=== PATIENT | male | born 1965 | race Caucasian/White ===

== ENCOUNTER 2018-04-30 00:03 | Outpatient (CLI) | payer BC, SELFPAY ==
--- NOTE | 2018-04-30 08:30 | ETT_ITS ---
*[facility]* *[facility]* [address] [place] [address] Stress Electrocardiography Chase protocol Date of study: 04/30/2018 *PATIENT PRESENTATION* Height: 182.9cm (72in) Blood Pressure: Weight: 85.5kg (188lb) BSA: 2.09m^2 Ordering physician: Lan Arenas Impressions: Normal study after maximal exercise. Summary: 1. Stress ECG conclusions: The stress ECG is negative. Allen treadmill score: 13. This score predicts a low risk of cardiac events. 2. Stress: The target heart rate was achieved. The heart rate response to stress is normal. There is a normal resting blood pressure with an appropriate response to stress. The patient experienced no chest pain during stress. Exercise capacity is normal for age. Indication: R06.09. History: REASON FOR TESTING: OVER THE PASET MONTH, PT HAS BEEN EXPERINCING BUTTERFLYS IN HIS CHEST- STATED THAT IT WAS A WEIRD TREMBLING FEELING. 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 PT REPORTS THAT HE HAS HAD UNEXPECTED SHORTNESS OF BREATH WITH NORMAL ACTIVITIES. PMH: HYPERLIPIDEMIA, ANXIETY. FAMILY HX: FATHER- AFIB, TIA, VASCULAR STENTING AND REVASC. SURGERY TO LOWER LEG. SMOKING: SMOKED 1PPD X 13 YEARS, QUIT 2007. EXCERCISE: IRREGULAR EXCERCISE, WALKING AND ROWING MACHINE PERIODICALLY. Risk factors: Family history of coronary artery disease. Dyslipidemia. Cholesterol: 207mg/dl. HDL: 40mg/dl. LDL: 84mg/dl. Triglycerides: 90mg/dl. ALLERGIES: NKDA MEDICATIONS:SIMVASTATIN 20 MG DAILY, ASPIRIN 81 MG OCASSIONALLY. Protocol: Chase protocol. Baseline ECG: NO PREVIOUS EKG AVAILABLE TODAY'S EKG- SINUS RHYTHM, ST ELEVATION-NORMAL EARLY REPOL PATTERN. Stress protocol: + +---+ +---+ !Stage !HR !BP (mmHg) !Sat! + +---+ +---+ !Baseline supine !62 !140/92 (108) !---! + +---+ +---+ !Baseline standing !61 !132/86 (101) !99%! + +---+ +---+ !Stage I; 1.7mph, 10degrees; 3 min !97 !161/101 (121)!98%! + +---+ +---+ !Stage II; 2.5mph, 12degrees; 3 min !111!180/106 (131)!97%! + +---+ +---+ !Stage III; 3.4mph, 14degrees; 3 min!129!196/102 (133)!98%! + +---+ +---+ !Stage IV; 4.2mph, 16degrees; 3 min !145!200/110 (140)!98%! + +---+ +---+ !Recovery; 1 min !140!192/98 (129) !96%! + +---+ +---+ !Recovery; 3 min !92 !208/90 (129) !---! + +---+ +---+ !Recovery; 6 min !83 !134/94 (107) !---! + +---+ +---+ * Stress results: The target heart rate was achieved. The heart rate response to stress is normal. There is a normal resting blood pressure with an appropriate response to stress. The rate-pressure product for the peak heart rate and blood pressure was 70246uv Hg/min. The patient experienced no chest pain during stress. Exercise capacity is normal for age. Stress ECG: EXCERCISE TESTING ENDED IN 13 MINS, 18 SECS DUE TO FATIGUE. MAX HR 176, 104% OF TARGET. HYPERTENSIVE BLOOD PRESSURE RESPONSE. METS: 14.37 ANGINA: NO REPORTED CHEST PAIN OR PRESSURE, NO CHEST FLUTTERING. ISCHEMIA: NO ISCHEMIC CHANGES NOTED.. FUNCTIONAL CAPACITY: ABOVE AVERAGE CAPACITY. The stress ECG is negative. Allen treadmill score: 13. This score predicts a low risk of cardiac events. Study data: Madi Pierce MD supervised and was readily available during the procedure. This study was interpreted by [facility]. Study status: Routine. Consent: The risks, benefits, and alternatives to the procedure were explained to the patient and informed consent was obtained. Procedure: Initial setup. A baseline ECG was recorded. Surface ECG leads and manual cuff blood pressure measurements were monitored. Heart sounds: Normal. Lung sounds: Normal. Treadmill exercise testing was performed using the Chase protocol. Study completion: The patient tolerated the procedure well and was discharged from the lab. Discharge: The patient left the laboratory in stable condition. Birthdate: Patient birthdate: 1965. Sex: Gender: male. Study date: Study date: 04/30/2018. Study time: 08:30 AM. Electronically signed by Madi Pierce MD 04/30/2018 09:46
== END 2018-04-30 00:23 ==
PROVIDERS: PCP Nurse Practitioner Family; Visit Provider Family Medicine
DX: R06.02 Shortness of breath (principal); R00.2 Palpitations; E78.5 Hyperlipidemia, unspecified; Z87.891 Personal history of nicotine dependence; R06.09 Other forms of dyspnea
CPT/HCPCS: 93017

== ENCOUNTER 2018-05-09 01:28 | Outpatient (CLI) | payer BC, SELFPAY ==
--- NOTE | 2018-05-09 08:50 | DI.US_ITS ---
SYMPTOM/DIAGNOSIS: HEADACHE ASSOCIATED WITH SEXUAL ACTIVITY, G44.82, SMOKER, DIZZINESS CAROTID ULTRASOUND: Mild intimal thickening is noted bilaterally. Also mild calcific plaque is identified in both carotid bulbs. There is a less than 50% stenosis bilaterally. Note is also made of bilateral antegrade flow in the vertebrals. SUMMARY: There is no evidence of significant carotid stenosis. Please see the carotid ultrasound worksheet for the complete results of this examination.
== END 2018-05-09 01:48 ==
PROVIDERS: PCP Nurse Practitioner Family; Visit Provider Nurse Practitioner Family
DX: R51 Headache (principal); G44.82 Headache associated with sexual activity; R42 Dizziness and giddiness
CPT/HCPCS: 93880

== ENCOUNTER 2019-01-11 12:18 | Outpatient (REF) | payer BC, SELFPAY ==
[2019-01-11 16:21] LABS: ALT 57 U/L (12-78); AST 43 U/L (15-37); Alkaline Phosphatase 66 U/L (46-116); Anion Gap 11.3 mmol/L (3-11); BUN 13 mg/dL (7-18); Bilirubin, Total 0.6 mg/dL (0.2-1.0); CO2 26.7 mmol/L (21.0-32.0); CREATININE 0.85 mg/dL (0.70-1.30); Calcium 8.5 mg/dL (8.5-10.1); Calculated LDL 121 mg/dL; Chloride 100 mmol/L (98-107); Cholesterol 194 mg/dL (50-200); Glucose 95 mg/dL (70-100); HDL Cholesterol 52 mg/dL (40-60); Potassium 4.1 mmol/L (3.5-5.1); Sodium 138 mmol/L (136-145); Total Protein 6.7 g/dL (6.4-8.2); Triglyceride 109 mg/dL (30-150)
== END 2019-01-11 12:38 ==
LOC: NCHCN 12:18
PROVIDERS: PCP Nurse Practitioner Family; Visit Provider Nurse Practitioner Family
DX: Z00.00 Encounter for general adult medical examination without abnormal findings (principal); E78.5 Hyperlipidemia, unspecified
CPT/HCPCS: 80053; 80061; 83721

== ENCOUNTER 2019-12-01 15:15 | Emergency (ER) | payer BC, SELFPAY ==
[2019-12-01 15:20] VITALS: BP 175/109; PULSE 70; RESP 14; TEMP 36.7; O2SAT 98
--- NOTE | 2019-12-01 15:40 | ED.GENADUL_ITS ---
Discharge Plan Disposition Patient Disposition: HOME Condition: Stable Discharge Details Chief Complaint: GenMedical Clinical Impression: Cellulitis Primary Care Provider: Cory Melgar ED Provider: René Veloz Home Meds and New Rx's Prescriptions: New cephalexin 500 mg capsule 500 mg PO TID 5 Days Qty: 15 RF: 0 Continued simvastatin 20 MG tablet 40 mg PO DAILY RF: 0 Discharge Instructions Instructions: Cellulitis (ED) Medical Decision Making 54-year-old male was working in a wooded area with pressure-treated wood and believes he may have got a small splinter or thorn below the skin of his left knee and now has an area of redness which he is concerned is infected. No fever. His exam reveals an area of mildly inflamed 5 to 6 mm raised skin. The area was opened with a bevel needle with serous fluid expressed. No obvious foreign body was removed. I will place the patient on Keflex. He will use warm soaks at home. He knows to return should he develop evidence of purulence or systemic fever or chills. HPI General Mode of arrival: ambulatory . Date/Time Provider Initiated Documentation: 12/01/19 15:16 . Limitations to Documentation: no limitations . Information obtained by: patient . History of Present Illness 54 year old M presents to the emergency department with the chief complaint of Left knee question infected splinter, described as mild, Quality is described as dull and constant, and is localized to the left and lower extremity. and it has been constant. No relieving factors improve symptom(s), No exacerbating factors reported . Patient notes other (Mild drainage at home, no fever). Patient did receive the following treatments prior to arrival, none Related Data Home Medications Medication Instructions Recorded Confirmed simvastatin 40 mg PO DAILY tab-cap 05/20/14 12/01/19 cephalexin 500 mg PO TID 5 Days #15 cap 12/01/19 Previous Rx's Medication Instructions Recorded cephalexin 500 mg PO TID 5 Days #15 cap 12/01/19 Allergies Allergy/AdvReac Type Severity Reaction Status Date / Time No Known Allergies Allergy Unverified 02/13/15 10:08 General Stated Complaint: GenMedical JONATHAN: 5 Review of Systems Narrative: No fever, chills, tetanus is up-to-date. [facility] Social History Smoking/Tobacco Use Status: Never Drug use: Never Do you feel safe in your relationship?: Yes Exam Narrative Exam Narrative: GEN: awake, alert, oriented 3. Pleasant, well groomed, interactive. HEAD: Normocephalic, atraumatic EYES: PERRL, EOMI EXT: Full ROM, no edema, no rash. The left leg overlying the tibial plateau laterally shows a abrasion with area of slight fluctuance measuring approximately 5 to 6 mm. Serous fluid was expressed. The knee is fully mobile. Neuro: Grossly normal neurologic exam, conversant, interactive. Psych: Speech fluent, thoughts congruent, affect normal Course Vital Signs Vital signs: Vital Signs Temperature 36.7 C 12/01/19 15:20 Pulse 70 12/01/19 15:20 Respiratory Rate 14 12/01/19 15:20 Blood Pressure 175/109 H 12/01/19 15:20 Pulse Oximetry 98 12/01/19 15:20 Temperature 36.7 C 12/01/19 15:20 Temperature Source Skin 12/01/19 15:20 Pulse 70 12/01/19 15:20 Respiratory Rate 14 12/01/19 15:20 Blood Pressure 175/109 H 12/01/19 15:20 Blood Pressure Position Sitting 12/01/19 15:20 Pulse Oximetry 98 12/01/19 15:20 Oxygen Delivery Method Room Air 12/01/19 15:20 Oxygen Flow Rate 0 12/01/19 15:20 Pain Level 4 12/01/19 15:20
[2019-12-01] MEDS: Cephalexin 500 MG CAP, 4 CAPS/BTL PO (15:53)
== END 2019-12-01 15:51 | disposition home or self-care (01) ==
PROVIDERS: Emergency Provider Emergency Medicine; PCP Nurse Practitioner Family
DX: S80.212A Abrasion, left knee, initial encounter (principal); L03.116 Cellulitis of left lower limb; X58.XXXA Exposure to other specified factors, initial encounter
CPT/HCPCS: 10160

== ENCOUNTER 2020-01-06 14:54 | Emergency (ER) | payer OTHER, SELFPAY ==
[2020-01-06 14:56] VITALS: BP 182/121; PULSE 86; RESP 16; TEMP 36.7; O2SAT 97
[2020-01-06 16:00] VITALS: BP 169/99
[2020-01-06 16:05] VITALS: BP 158/99; PULSE 78; RESP 20; TEMP 36.5; O2SAT 96
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
--- NOTE | 2020-03-23 13:13 | ED.GENADUL_ITS ---
Discharge Plan Disposition Patient Disposition: HOME Condition: Stable Discharge Details Clinical Impression: Burn Primary Care Provider: Cory Melgar ED Provider: Mariaelena Mata Home Meds and New Rx's Prescriptions: No Action simvastatin 20 MG tablet 40 mg PO DAILY RF: 0 Discharge Instructions Instructions: Superficial Burn (ED), Second Degree Burn (ED) Additional Instructions: Wash area gently with soap and water once or twice daily. Pat dry completely. Apply antibiotic ointment for any burn tissue as discussed Apply dressing to the area. Use Aleve or Tylenol for discomfort if needed as discussed Please have follow-up appoint with your primary care doctor for wound recheck as well as for recheck of your blood pressure which is noted to be elevated today. Please check your blood pressure in the morning with your at home blood pressure cuff and record your blood pressures to discuss with your PCP Your tetanus was last updated 02/10/2015. Return for any concerns, increasing pain, signs of infection or alarming symptoms sooner if needed Discharge Data Discharge Date/Time-TO BE ENTERED AT DEPARTURE: 01/06/20 16:16 HPI General Date/Time Provider Initiated Documentation: 01/06/20 15:04 . HPI Narrative: Please see H&P for documentation regarding this pt visit to the ER. This was signed 03/23/2020. Related Data Home Medications Medication Instructions Recorded Confirmed simvastatin 40 mg PO DAILY tab-cap 05/20/14 01/06/20 Allergies Allergy/AdvReac Type Severity Reaction Status Date / Time No Known Allergies Allergy Unverified 01/06/20 15:00 General Stated Complaint: Burn JONATHAN: 3 PFSH Social History Smoking/Tobacco Use Status: Never Alcohol Intake: never Drug use: Never Substance use type: does not use Do you feel safe at home: Yes Do you feel safe in your relationship?: Yes Course Vital Signs Vital signs: Vital Signs Temperature 36.7 C 01/06/20 14:56 Pulse 86 01/06/20 14:56 Respiratory Rate 16 01/06/20 14:56 Blood Pressure 182/121 H 01/06/20 14:56 Pulse Oximetry 97 01/06/20 14:56 Temperature 36.5 C 01/06/20 16:05 Temperature Source Skin 01/06/20 14:56 Pulse 78 01/06/20 16:05 Respiratory Rate 20 01/06/20 16:05 Respiratory Effort Non-Labored 01/06/20 15:03 Blood Pressure 158/99 H 01/06/20 16:05 Blood Pressure Position Sitting 01/06/20 14:56 Pulse Oximetry 96 01/06/20 16:05 Oxygen Delivery Method Room Air 01/06/20 14:56 Oxygen Flow Rate 0 01/06/20 14:56 Pain Level 5 01/06/20 14:56
== END 2020-01-06 16:16 | disposition home or self-care (01) ==
PROVIDERS: Emergency Provider Physician Assistant; PCP Nurse Practitioner Family
DX: T23.211A Burn of second degree of right thumb (nail), initial encounter (principal); X13.1XXA Other contact with steam and other hot vapors, initial encounter
CPT/HCPCS: 16020; 99223

== ENCOUNTER 2020-01-30 01:58 | Emergency (ER) | payer SELFPAY | END 2020-01-30 02:01 | LOC: ER 02:01 | PROVIDERS: PCP Nurse Practitioner Family | DX: Z53.21 Procedure and treatment not carried out due to patient leaving prior to being seen by health care provider (principal) ==

== ENCOUNTER 2020-07-08 02:45 | Outpatient (CLI) | payer BC, SELFPAY ==
[2020-07-08 07:31] LABS: HCT 47.2 % (40.0-50.0); HGB 15.9 g/dL (13.5-17.5); MCH 31.4 pg (27.0-33.0); MCHC 33.7 % (32.0-36.0); MCV 93.1 fL (80-95); MPV 9.8 fL (8.0-11.0); Platelet Count 156 10^3/uL (130-400); RBC 5.07 10^6/uL (4.36-5.78); RDW 12.4 % (11.8-14.1); RDW-SD 42.4 fL; WBC 4.73 10^3/uL (4.4-10.8)
== END 2020-07-08 03:05 ==
PROVIDERS: PCP Nurse Practitioner Family; Visit Provider Physician Assistant
DX: Z00.00 Encounter for general adult medical examination without abnormal findings (principal); E78.5 Hyperlipidemia, unspecified
CPT/HCPCS: 36415; 85027

== ENCOUNTER 2020-07-13 18:29 | Outpatient (REF) | payer BC, SELFPAY ==
[2020-07-13 19:01] LABS: Anion Gap 6.3 mmol/L (3-11); BUN 14 mg/dL (7-18); CO2 27.7 mmol/L (21.0-32.0); CREATININE 1.01 mg/dL (0.70-1.30); Calculated LDL 148 mg/dL (<100); Chloride 100 mmol/L (98-107); Cholesterol 234 mg/dL (<200); Glucose 92 mg/dL (74-106); HDL Cholesterol 54 mg/dL (40-60); Potassium 4.1 mmol/L (3.5-5.1); Sodium 134 mmol/L (136-145); Triglyceride 164 mg/dL (<150)
[2020-07-14 17:52] LABS: PSA, Screening 0.9 ng/mL (0.0-3.5)
== END 2020-07-13 18:49 ==
LOC: NCHCN 18:29
PROVIDERS: PCP Nurse Practitioner Family; Visit Provider Physician Assistant
DX: Z12.5 Encounter for screening for malignant neoplasm of prostate (principal); I10 Essential (primary) hypertension; E78.5 Hyperlipidemia, unspecified; M67.40 Ganglion, unspecified site; L30.9 Dermatitis, unspecified
CPT/HCPCS: 80048; 80061; 84153

== ENCOUNTER 2021-07-12 13:10 | Outpatient (REF) | payer BC, SELFPAY ==
[2021-07-12 15:37] LABS: ALT 56 U/L (16-63); AST 39 U/L (15-37); Albumin 4.2 g/dL (3.4-5.0); Alkaline Phosphatase 60 U/L (46-116); Anion Gap 8.2 mmol/L (3-11); BUN 14 mg/dL (7-18); Bilirubin, Total 0.6 mg/dL (0.2-1.0); CO2 29.8 mmol/L (21.0-32.0); Calcium 8.8 mg/dL (8.5-10.1); Calculated LDL 133 mg/dL (<100); Chloride 99 mmol/L (98-107); Cholesterol 206 mg/dL (<200); Glucose 99 mg/dL (74-106); HDL Cholesterol 55 mg/dL (40-60); Potassium 4.2 mmol/L (3.5-5.1); Sodium 137 mmol/L (136-145); Total Protein 6.8 g/dL (6.4-8.2); Triglyceride 94 mg/dL (<150)
[2021-07-12 21:53] LABS: PSA, Screening 1.6 ng/mL (0.0-3.5)
== END 2021-07-12 13:11 | disposition home or self-care (01) ==
LOC: NCHCN 13:10
PROVIDERS: PCP Nurse Practitioner Family; Visit Provider Physician Assistant
DX: I10 Essential (primary) hypertension (principal); E78.5 Hyperlipidemia, unspecified; Z12.5 Encounter for screening for malignant neoplasm of prostate
CPT/HCPCS: 80053; 80061; 84153

== ENCOUNTER 2022-07-15 15:02 | Outpatient (REF) | payer BC, SELFPAY ==
[2022-07-15 15:59] LABS: ALT 42 U/L (16-63); AST 30 U/L (15-37); Albumin 4.4 g/dL (3.4-5.0); Alkaline Phosphatase 65 U/L (46-116); Anion Gap 7.2 mmol/L (3-11); BUN 18 mg/dL (7-18); Bilirubin, Total 0.9 mg/dL (0.2-1.0); CO2 28.8 mmol/L (21.0-32.0); CREATININE 0.9 mg/dL (0.70-1.30); Calcium 9.3 mg/dL (8.5-10.1); Calculated LDL 131 mg/dL (<100); Chloride 99 mmol/L (98-107); Cholesterol 202 mg/dL (<200); Estimated GFR 100.86 (mL/min/1.73m2); Glucose 106 mg/dL (74-106); HDL Cholesterol 60 mg/dL (40-60); Potassium 4.3 mmol/L (3.5-5.1); Sodium 135 mmol/L (136-145); Total Protein 7.5 g/dL (6.4-8.2); Triglyceride 56 mg/dL (<150)
[2022-07-15 23:09] LABS: PSA, Screening 1.8 ng/mL (<=3.5)
== END 2022-07-15 15:03 | disposition home or self-care (01) ==
LOC: NCHCN 15:02
PROVIDERS: Visit Provider Physician Assistant
DX: I10 Essential (primary) hypertension (principal); E78.5 Hyperlipidemia, unspecified; Z12.5 Encounter for screening for malignant neoplasm of prostate
CPT/HCPCS: 80053; 80061; 84153

== ENCOUNTER 2022-09-28 14:54 | Outpatient (CLI) | payer BC, SELFPAY ==
--- NOTE | 2022-09-28 | DI.RAD_ITS ---
Exam(s) XR SHOULDER RT COMPLETE 2+V EXAM: XR SHOULDER RT COMPLETE 2+V CLINICAL HISTORY: RT SHOULDER JT PAIN, M25.511, CHRONIC PAIN WITH IMPINGEMENT. TECHNIQUE: 2D digital imaging was performed of the right shoulder. Five images were obtained. AP, Grashey, Y-view and axillary views were obtained. COMPARISON: No exams were available for comparison FINDINGS: BONES: No acute fracture is present. No bony destructive lesion is seen. JOINTS: No dislocation present. Mild degenerative changes are seen at the acromioclavicular joint faith racterized by bony hypertrophy. SOFT TISSUE: Calcifications are seen in the soft tissues adjacent to greater tuberosity consistent wi th calcific tendinitis. IMPRESSION: Mild degenerative changes of the right shoulder with calcific tendinitis. DATA REPOSITORY: RADIATION DOSE DELIVERED:
== END 2022-09-28 15:14 ==
LOC: DI 14:55
PROVIDERS: PCP Physician Assistant; Visit Provider Physician Assistant
DX: M25.511 Pain in right shoulder (principal); M75.41 Impingement syndrome of right shoulder; M75.31 Calcific tendinitis of right shoulder; M19.011 Primary osteoarthritis, right shoulder
CPT/HCPCS: 73030

== ENCOUNTER 2023-08-11 15:05 | Outpatient (REF) | payer BC, SELFPAY ==
[2023-08-11 16:15] LABS: ALT 32 U/L (16-63); AST 17 U/L (15-37); Albumin 3.7 g/dL (3.4-5.0); Alkaline Phosphatase 63 U/L (46-116); BUN 12 mg/dL (7-18); Bilirubin, Total 0.9 mg/dL (0.2-1.0); CREATININE 0.9 mg/dL (0.70-1.30); Calcium 9.3 mg/dL (8.5-10.1); Calculated LDL 86 mg/dL (<100); Chloride 102 mmol/L (98-107); Cholesterol 148 mg/dL (<200); Estimated GFR 100.24 (mL/min/1.73m2); Glucose 101 mg/dL (74-106); HDL Cholesterol 56 mg/dL (40-60); Potassium 4.3 mmol/L (3.5-5.1); Sodium 137 mmol/L (136-145); Total Protein 6.7 g/dL (6.4-8.2); Triglyceride 31 mg/dL (<150)
[2023-08-11 22:22] LABS: PSA, Screening 0.8 ng/mL (<=3.5)
== END 2023-08-11 15:06 | disposition home or self-care (01) ==
LOC: NCHCN 15:05
PROVIDERS: PCP Physician Assistant; Visit Provider Physician Assistant
DX: I10 Essential (primary) hypertension (principal); Z12.5 Encounter for screening for malignant neoplasm of prostate
CPT/HCPCS: 80053; 80061; 84153

== ENCOUNTER 2024-03-22 19:50 | Outpatient (REF) | payer BC, SELFPAY ==
[2024-03-22 14:54] LABS: Abs Immature Grans 0.01 10^3/uL (0.0-0.06); Absolute Basophil Count 0.06 10^3/uL (0.0-0.2); Absolute Eosinophil Count 0.62 10^3/uL (0.0-0.7); Absolute Monocyte Count 0.62 10^3/uL (0.1-0.8); Absolute Neutrophil Count 3.48 10^3/uL (1.2-6.7); Basophils % 1.1 %; Eosinophils % 10.9 %; HCT 46.3 % (40.0-50.0); HGB 15.3 g/dL (13.5-17.5); Immature Grans % 0.2 %; Lymphocytes % 15.8 %; MCH 31.1 pg (27.0-33.0); MCV 94 fL (80-95); MPV 10.4 fL (8.0-11.0); Monocytes % 10.9 %; Neutrophils % 61.1 %; Platelet Count 177 10^3/uL (130-400); RBC 4.92 10^6/uL (4.36-5.78); RDW 12.7 % (11.8-14.1); RDW-SD 43.9 fL; WBC 5.69 10^3/uL (4.4-10.8)
[2024-03-22 15:05] LABS: ALT 59 U/L (16-63); AST 30 U/L (15-37); Albumin 4.1 g/dL (3.4-5.0); Alkaline Phosphatase 67 U/L (46-116); Anion Gap 4.5 mmol/L (3-11); BUN 17 mg/dL (7-18); CO2 30.5 mmol/L (21.0-32.0); CREATININE 0.9 mg/dL (0.70-1.30); Calcium 9.3 mg/dL (8.5-10.1); Chloride 102 mmol/L (98-107); Estimated GFR 99.62 (mL/min/1.73m2); Glucose 101 mg/dL (74-106); Potassium 4.3 mmol/L (3.5-5.1); Sodium 137 mmol/L (136-145); Total Protein 7.1 g/dL (6.4-8.2)
[2024-03-22 15:06] LABS: Lipase 315 U/L (16-77)
== END 2024-03-22 19:51 | disposition home or self-care (01) ==
LOC: LBN 19:50
PROVIDERS: PCP Physician Assistant; Visit Provider Physician Assistant Medical
DX: R10.9 Unspecified abdominal pain (principal)
CPT/HCPCS: 80053; 83690; 85025

== ENCOUNTER 2024-04-16 10:38 | Emergency (ER) | payer BC, SELFPAY ==
--- NOTE | 2024-04-16 11:00 | RT.EKG_ITS ---
APPROVED REPORT Exam: Resting ECG Reason for Exam: upper abdominal pain Patient Location: E HR:109 bpm ECG Measurements Heart Rate 109 AXIS [place] 121 P 71 QRSd 84 QRS 46 QT 324 T 55 QTc 436 Conclusion Sinus tachycardia, rate 109 No interval abnormalities No STEMI
[2024-04-16 11:01] VITALS: BP 119/71; PULSE 113; RESP 14; TEMP 37; O2SAT 96
--- NOTE | 2024-04-16 11:27 | DI.CT_ITS ---
Exam(s) CT ABDOMEN PELVIS W EXAM: CT ABDOMEN PELVIS W CLINICAL HISTORY: abd pain, epigastric. TECHNIQUE: Imaging Protocol: Axial computed tomography images with coronal and sagittal reformatted images were created and reviewed CONTRAST MATERIAL: Intravenous: Omnipaque 350 Contrast volume:98 ml Oral: no COMPARISON: CT CT ABDOMEN PELVIS W from 03/25/2024 US US ABDOMEN LIMITED from 03/29/2024 FINDINGS: ABDOMEN and PELVIS: Lung Bases: No acute findings. Liver: Normal density. No suspicious mass. Gallbladder and biliary tract: No radiodense calculus. Stable mild dilatation of the common bile nick t which tapers into the head of the pancreas. The pancreas appears normal. No intrahepatic biliary di latation. Pancreas: Normal density. No abnormal calcifications or inflammatory process. No evidence of mass. Spleen: Normal. Kidneys: Normal size, contour and axis. No radiodense stones. No obstructive uropathy. No suspicious masses seen. Adrenal glands: No masses seen. Vasculature: Abdominal aorta non-dilated. Soft tissues: Unremarkable. Bladder: Nearly empty and not well evaluated. Apparent diffuse wall thickening. No calculi.No focal mass. Bowel: Abnormal wall thickening and enhancement involving distal ileum. The colon is nearly empty. The stomach, proximal and mid small bowel appear normal. No obstruction. Appendix normal. Peritoneal cavity: Small amount of fluid in pelvis. No focal collection. No mesenteric inflammatory response. Bones: Unremarkable for age. Reproductive organs: Unremarkable. Lymph nodes: No pathologically enlarged lymph nodes. IMPRESSION:: A normal wall thickening and inflammation around the distal ileum consistent with infec tious or inflammatory enteritis. Small amount of fluid is noted in the pelvis. No findings to suggest obstruction. Markedly thickened urinary bladder which is not well distended. Clinical correlation recommended. Findings called to Dr. Amato of the emergency department. RADIATION DOSE DELIVERED: Total DLP DATA REPOSITORY: All CT scans at this facility are submitted to the National Radiology Data Registry (NRDR) Dose Index Registry (DIR) with the [employer] (A[employer]). RADIATION OPTIMIZATION: All CT scans at this facility use at least one of these dose optimization te chniques: automated exposure control; mA and/or kV adjustment per patient size (includes targeted exa ms where dose is matched to clinical indication); or iterative reconstruction.
--- NOTE | 2024-04-16 12:06 | ED.GENADUL_ITS ---
Discharge Plan Disposition Patient Disposition: Home Condition: Stable Discharge Details Clinical Impression: Abdominal pain, Ileitis, terminal, Diarrhea Primary Care Provider: Abebe Bell ED Provider: Sonia Bowling Home Meds and New Rx's Prescriptions: No Action simvastatin 20 MG tablet 40 mg PO DAILY atorvastatin 40 mg tablet 40 mg PO DAILY Discharge Instructions Instructions: Abdominal Pain, Adult ED Additional Instructions: You were seen in the emergency department today for evaluation of abdominal pain and diarrhea. In our department your full physical examination performed and had laboratory studies that were reassuring. Your CT scan showed some irritation in your bowel, which can be due to infection or inflammatory bowel disease. I recommend that you keep a food diary and correlate foods that you take in with your symptoms, maintain good hydration and nutrition, and follow-up with your primary care provider in the next few days to discuss any ongoing symptoms and any testing that needs to be performed after today's visit. You can always return to the emergency department, especially if you develop fever, chills, chest pain, change or worsening of your abdominal pain, or any of the symptoms cause you concern. Thank for allowing us to be part of your care. HPI General Mode of arrival: ambulatory . Date/Time Provider Initiated Documentation: 04/16/24 11:14 . Limitations to Documentation: no limitations . Information obtained by: patient, family and old records reviewed . HPI Narrative: HPI: This is a 59-year-old male patient with a past medical history significant for hypercholesterolemia, alcohol use, who is presenting for evaluation of epigastric and right upper quadrant abdominal pain. The patient has noticed this pain for the last 3 weeks, seems to come and go in severity and does not seem to be related to postprandial timing. He has been working this complaint up in the outpatient environment, had a right upper quadrant ultrasound that shows no evidence of cholecystitis or cholelithiasis but did show a borderline dilated common bile duct to 8 to 10 mm. He had elevated pancreatic enzymes per his report and had a CT scan that did not show any abnormalities in the abdomen and pelvis. The patient reports he was prompted to seek care today because last night he had worsening of his pain, which remains located in the right upper quadrant and epigastric region. It was associated with several episodes of nonbloody diarrhea and 1 episode of dry heaving. He has not had fevers or chills, has not tried to eat anything today. No personal history of abdominal surgery in the past. The patient reports that he drinks approximately 6-8 beers per day, has no known history of gallstones and has never experienced pancreatitis in the past. Exam: Gen: Awake and alert, in no apparent distress HEENT: Non-icteric sclera Neck: Supple Lungs: No apparent respiratory distress, normal respiratory effort. CV: Appears well perfused, strong distal pulses Abdomen: Non-distended, soft, tenderness to palpation in the epigastric region and right upper quadrant without rigidity, rebound, or guarding. No Nieto sign appreciated MSK: Moves 4 extremities without apparent limitation in ROM Skin: Visualized skin without rashes, cyanosis. Neuro: Normal Gait, no obvious focal deficits or facial asymmetry. Speaks in full, clear sentences. Psych: Appropriate for situation. MDM: This is a 59-year-old male patient presenting for evaluation of abdominal p ain and diarrhea. Differential includes but is not limited to gastroenteritis, gastritis/PUD, pancreatitis, cholecystitis, cholelithiasis, choledocholithiasis. Considered hepatitis, appendicitis, diverticulitis. The patient's abdominal examination and history is less concerning for aortic disease or mesenteric ischemia. No urinary tract symptoms to increase my concern for UTI, nephrolithiasis. The brief duration of diarrhea and vomiting makes me less concerned for severe metabolic and electrolyte derangement, kidney injury. At this time the patient is not desiring of any medications for management of his symptoms. Will obtain laboratory studies to include CBC, CMP, lipase, lactate, and troponin. Given the patient's recent imaging abnormalities on CT and ultrasound, as well as the change in his symptoms, it is reasonable to repeat CT imaging of the abdomen and pelvis at this time. ED Course: I independently interpreted the laboratory studies, which show no significant leukocytosis, anemia, or thrombocytopenia. The chemistry panel is without evidence of electrolyte abnormality, kidney dysfunction, or liver injury. Lactate and lipase are low, troponin undetectable, and in the setting of a nonischemic EKG I do not see indication for delta troponins. UA noninfectious. I dependently interpreted the patient's CT imaging, and discussed the findings with the radiologist. The patient has evidence of terminal ileitis, and in the absence of a history of inflammatory bowel disease as well as no evidence for vascular derangement on CT scan, and concern for infectious pathology. The patient does not have any risk factors such as recent antibiotic use, exposure to unclean water sources, or international travel to put him at risk for diarrheal illnesses that would require emergent treatment. Additionally, the patient has no evidence of pancreatitis, gallbladder disease, though his bile duct is slightly dilated for his age. These findings were shared with the patient, we discussed keeping a food diary and using bland foods for initial management of his diarrheal illness. He will follow-up with his primary care provider to discuss next Epson management. At this time, the patient has had a full medical evaluation and is safe for discharge to home. They are hemodynamically stable, ambulatory, and tolerating PO. They are understanding of the follow-up plan and return precautions. They left our facility without incident. Sonia Bowling MD Related Data Home Medications ?Medication ?Instructions ?Recorded ?Confirmed simvastatin 20 mg tablet 40 mg PO DAILY 05/20/14 04/16/24 atorvastatin 40 mg tablet 40 mg PO DAILY 04/16/24 04/16/24 Allergies Allergy/AdvReac Type Severity Reaction Status Date / Time No Known Allergies Allergy Verified 04/16/24 11:03 General Stated Complaint: Abd Prob JONATHAN: 3 Course Vital Signs Vital signs: Vital Signs Temperature 37.0 C 04/16/24 11:01 Pulse 113 H 04/16/24 11:01 Respiratory Rate 14 04/16/24 11:01 Blood Pressure 119/71 04/16/24 11:01 Pulse Oximetry 96 04/16/24 11:01 Temperature 37.0 C 04/16/24 11:01 Temperature Source Oral 04/16/24 11:01 Pulse 113 H 04/16/24 11:01 Respiratory Rate 14 04/16/24 11:01 Blood Pressure 119/71 04/16/24 11:01 Blood Pressure Position Sitting 04/16/24 11:01 Pulse Oximetry 96 04/16/24 11:01 Oxygen Delivery Method Room Air 04/16/24 11:01 Oxygen Flow Rate 0 04/16/24 11:01 Pain Level 6 04/16/24 11:01 Medical Decision Making Quality:SDOH Health Related Social Needs: No Data to Display PFSH All Active Problems (Updated 04/16/24 @ 15:47 by Sonia Bowling MD) Diarrhea (Acute) Ileitis, terminal (Acute) Abdominal pain (Acute) Burn (Acute) Social History Smoking/Tobacco Use Status: Never Smoking risk assessment performed?: Yes Alcohol Intake: never Drug use: Never Substance use type: does not use Do you feel safe at home: Yes Do you feel safe in your relationship?: Yes
[2024-04-16 12:27] LABS: Lactate 0.7 mmol/L (0.6-1.4)
[2024-04-16 12:28] LABS: Abs Immature Grans 0.01 10^3/uL (0.0-0.06); Absolute Basophil Count 0.02 10^3/uL (0.0-0.2); Absolute Eosinophil Count 0.11 10^3/uL (0.0-0.7); Absolute Lymphocyte Count 0.26 10^3/uL (1.2-3.4); Absolute Monocyte Count 0.62 10^3/uL (0.1-0.8); Absolute Neutrophil Count 4.67 10^3/uL (1.2-6.7); Basophils % 0.4 %; Eosinophils % 1.9 %; HCT 48.6 % (40.0-50.0); HGB 16.5 g/dL (13.5-17.5); Immature Grans % 0.2 %; Lymphocytes % 4.6 %; MCH 31.7 pg (27.0-33.0); MCV 93 fL (80-95); MPV 9.7 fL (8.0-11.0); Monocytes % 10.9 %; Platelet Count 142 10^3/uL (130-400); RBC 5.21 10^6/uL (4.36-5.78); RDW 12.9 % (11.8-14.1); RDW-SD 44.2 fL; WBC 5.69 10^3/uL (4.4-10.8)
[2024-04-16 12:55] LABS: ALT 47 U/L (16-63); AST 22 U/L (15-37); Albumin 3.8 g/dL (3.4-5.0); Alkaline Phosphatase 65 U/L (46-116); Anion Gap 5.6 mmol/L (3-11); BUN 18 mg/dL (7-18); CO2 29.4 mmol/L (21.0-32.0); CREATININE 0.9 mg/dL (0.70-1.30); Calcium 9.3 mg/dL (8.5-10.1); Chloride 106 mmol/L (98-107); Estimated GFR 99.62 (mL/min/1.73m2); Glucose 118 mg/dL (74-106); Lipase 52 U/L (16-77); Potassium 4.6 mmol/L (3.5-5.1); Sodium 141 mmol/L (136-145)
[2024-04-16 12:58] LABS: Troponin I < 4 ng/L (<or=76)
[2024-04-16 13:59] LABS: Bilirubin Negative (Negative); Blood Negative (Negative); Clarity Clear (Clear); Glucose Negative (Negative); Ketones Trace mg/dL (Negative); Leukocyte Esterase Negative (Negative); Nitrite Negative (Negative); Urobilinogen 0.2 mg/dL (Up to 0.2)
[2024-04-16] MEDS: Omnipaque 350 MG/ML 100 ML BTL IJ (15:05)
[2024-04-16] MEDS: Normal Saline - Diluent 50 ML VIAL IJ (15:06)
[2024-04-16 16:11] VITALS: BP 127/86; PULSE 91; RESP 18; TEMP 36.3; O2SAT 96
== END 2024-04-16 16:15 | disposition home or self-care (01) ==
PROVIDERS: Emergency Provider Emergency Medicine; PCP Physician Assistant
DX: R10.13 Epigastric pain (principal); R19.7 Diarrhea, unspecified; R00.0 Tachycardia, unspecified; E78.00 Pure hypercholesterolemia, unspecified; K50.00 Crohn's disease of small intestine without complications
CPT/HCPCS: 36415; 80053; 83690; 93005; 99285; 74177; 81003; 83605; 83735; 84484; 85025; 93010; 99284; J3490

== ENCOUNTER 2024-08-16 14:21 | Outpatient (REF) | payer BC, SELFPAY ==
[2024-08-16 16:26] LABS: Anion Gap 3.7 mmol/L (3-11); BUN 13 mg/dL (7-18); CO2 31.3 mmol/L (21.0-32.0); Calcium 9.2 mg/dL (8.5-10.1); Calculated LDL 70 mg/dL (<100); Chloride 98 mmol/L (98-107); Cholesterol 128 mg/dL (<200); Estimated GFR 87.78 (mL/min/1.73m2); Glucose 94 mg/dL (74-106); HDL Cholesterol 51 mg/dL (40-60); Potassium 4.4 mmol/L (3.5-5.1); Sodium 133 mmol/L (136-145); Triglyceride 37 mg/dL (<150)
[2024-08-17 00:06] LABS: PSA, Screening 0.8 ng/mL (<=3.5)
== END 2024-08-16 14:22 | disposition home or self-care (01) ==
LOC: NCHCN 14:21
PROVIDERS: PCP Physician Assistant; Visit Provider Physician Assistant
DX: Z12.5 Encounter for screening for malignant neoplasm of prostate (principal); I10 Essential (primary) hypertension; E78.5 Hyperlipidemia, unspecified
CPT/HCPCS: 80048; 80061; 84153

== ENCOUNTER 2024-10-18 06:45 | Day surgery (SDC) | payer BC, SELFPAY ==
--- NOTE | 2024-10-17 18:05 | W.PM.DSUDISC ---
Date of service: 10/18/24 Discharge Plan Disposition Patient Disposition: Home Condition: Good Discharge Details Reason For Visit: Screening colonoscopy Attending Provider: Toro Harris Primary Care Provider: Abebe Bell Home Meds and New Rx's Prescriptions: Continued lisinopril 20 mg tablet 20 mg PO DAILY atorvastatin 40 mg tablet 40 mg PO DAILY Discontinued bisacodyl [Dulcolax (bisacodyl)] 5 mg tablet,delayed release (DR/EC) 5 mg PO ONCE Qty: 4 0RF Rx Instructions: Take per colonoscopy instructions provided by ordering providers office polyethylene glycol 3350 17 gram/dose powder 17 g PO ONCE Qty: 238 0RF Rx Instructions: Take per colonoscopy instructions provided by ordering providers office Discharge Instructions Instructions: Colon polyps Additional Instructions: Juan Francisco, is very nice to meet you today, and I hope you feel well after the procedure. Everything went very smoothly. I did find, and removed, 2 polyps today. Both of these will be sent off for testing since polyps 2, different types, and we use that information to help determine the timing of your future colonoscopies. Those results take about a week or 2 to get back, but as soon as we have them, my office will be in touch. If you need anything or have any questions at all, please do not hesitate to call at any point. 1. If tolerated, consume a soft, low fiber diet for 1-2 days. 2[address] Do not drive, drink alcohol, operate machinery, make critical decisions, or do activities that require coordination or balance for 24 hours. 3. Because air was put into your colon during the procedure, expelling air from your rectum (passing gas or farting) is normal. 4. You may not have a bowel movement for 1-3 days because of the colonoscopy prep. This is normal. 5. Go directly to the emergency room if you notice any of the following: Develop chills (warm to touch), or if you have a thermometer and your temperature is above 101 Difficulty breathing or difficultly swallowing Persistent vomiting Severe abdominal pain, other than gas cramps Severe chest pain Black, tarry stools Any bleeding ? exceeding one tablespoon 6. Call your physician if the site where your intravenous was started becomes red, swollen, painful, and warm to touch. 7. Your physician has reviewed your pre-procedure medications. Please continue to take those medications as previously ordered. You will be given specific information/education regarding any changes to your medications before leaving. Stand Alone Forms: Anesthesia Discharge Inst., Thelma Molina (DSU) Activity:: Activity as Tolerated Diet:: As Tolerated Discharge Orders Discharge Orders: Discharge Order (Routine); Ordered 10/17/24 Ordered By: Toro Harris DS: Diagnosis Discharge Diagnosis (1) Encounter for screening colonoscopy: Status: Acute Asessment and Plan: Follow-up on polypectomy results
--- NOTE | 2024-10-17 18:06 | COLE_ITS ---
Date of service: 10/18/24 Time of Service: 09:17 Colonoscopy Report Date of procedure: 10/18/24 Pre-op diagnosis general: Screening colonoscopy Post-op diagnosis procedure note: other (Colon polyps) Procedure: Colonoscopy with polypectomy Surgeon: Toro Harris Anesthesia Type: General:No Airway Estimated blood loss (mL): 5 Pathology: other (0.25 cm flat polyp at 20 cm, 0.25 cm flat polyp at 30 cm) Complications: None Disposition: same day Indications: Juan Francisco is a 59-year-old male who needs his next screening colonoscopy Prep: Miralax/Dulcolax Procedure Start Time: 08:38 Procedure End Time: 09:04 Retraction Time: 16 Findings: 0.25 cm flat polyp at 20 cm, 0.25 cm flat polyp at 30 cm Procedure Description: After the induction of anesthesia, and with the patient in left lateral decubitus position, I began by performing an external anorectal exam.? Perineum and skin were normal, as was the anal verge.? There was no evidence of external hemorrhoids.? Next, I performed a digital rectal exam.? I did not appreciate any abnormal findings.? Next, I advanced a colonoscope into the rectal vault.? I performed retroflexion.? This was normal.? Using insufflation, I then advanced the colonoscope beyond the rectal folds and into the sigmoid colon before advancing towards the cecum.? The quality of the prep was excellent.? The scope was noted to be in the cecum by identification of the ileocecal valve and appendiceal orifice.? I then began withdrawing the colonoscope using repeated irrigation as necessary for full evaluation of the colonic mucosa. I found a 0.25 cm flat polyp around 30 cm from the anus. This was removed with cold forcep polypectomy. There is minimal bleeding. Similarly, another 0.25 cm flat polyp was found at 20 cm, which was removed in the same fashion. There were no issues at the site. ?Once the scope was withdrawn to the level of the rectum, great care was taken to examine portions of the rectal folds.? Finally, the scope was withdrawn and the patient was brought to the same-day surgery recovery unit as the anesthetic wore off. ?The findings and instructions were shared with the patient prior to discharge. Gallagher Bowel Prep Gallagher Bowel Prep Right Colon: 3 Left Colon: 3 Transverse Colon: 3 Total Score: 9
[2024-10-18 07:00] VITALS: BP 147/103; PULSE 58; RESP 18; TEMP 36.6; O2SAT 100
[2024-10-18] MEDS: Lactated Ringers 1,000 ML 80 ML IV (07:24)
--- NOTE | 2024-10-18 08:02 | ANES.PREOP_ITS ---
General Info Date of Service Date Performed: 10/18/24 Height: 6 ft Weight: 83.1 kg Body Mass Index (BMI): 24.8 Surgical Procedure: Operation Date: 10/18/24 08:20 Proposed Procedure Side Surgeon noble Harris MD Meds Allergies and Home Medications Allergies Allergy/AdvReac Type Severity Reaction Status Date / Time No Known Allergies Allergy Verified 10/18/24 07:07 Home Medication ?Medication ?Instructions ?Recorded atorvastatin 40 mg tablet 40 mg PO DAILY 04/16/24 lisinopril 20 mg tablet 20 mg PO DAILY 09/23/24 Current Visit Medications: Current Medications Generic Name Dose Route Start Last Admin Trade Name Freq PRN Reason Stop Dose Admin Ringer's Solution 1,000 mls @ 80 mls/hr 10/18/24 06:00 10/18/24 07:24 IV 10/18/24 23:59 80 mls/hr INFUSION JOSE Administration IV Miscellaneous Supplies 1 each 10/18/24 06:00 Iv Access IV 10/18/24 23:59 DIRECTED JOSE Ondansetron HCl 4 mg 10/17/24 18:07 Ondansetron 4 Mg/2 Ml Vial IVP 11/16/24 18:06 Q4H PRN PRN Nausea / Vomiting Sodium Chloride 0 ml 10/18/24 06:00 Normal Saline Flush 10 Ml Syr IV 10/18/24 23:59 PRN PRN Sodium Chloride 0 ml 10/18/24 06:00 Normal Saline 10 Ml Vial IJ 10/18/24 23:59 DIRECTED PRN Sterile Water 0 ml 10/18/24 06:00 Water,Injection,Sterile 10 Ml Vial IJ 10/18/24 23:59 DIRECTED PRN PFSH Active Problems Active Problems: Problem Status Onset Code Encounter for screening colonoscopy Acute Z12.11 Eczema Acute L30.9 GERD (gastroesophageal reflux disease) Chronic K21.9 Essential hypertension Acute I10 ANA (obstructive sleep apnea) Chronic G47.33 Hyperlipidemia Acute E78.5 Burn Acute T30.0 Medical History Medical History Family history of malignant melanoma sister RUQ pain Tobacco Smoking/Tobacco Use Status: Former Tobacco Use Passive smoking exposure: No Alcohol Alcohol Intake: current Alcohol intake frequency: holidays/special occasions only Substance Use Substance use: Rarely Substance use type: marijuana Vital Signs and Lab Results Vital Signs Most Recent Vital Signs in EMR: Most Recent Vital Signs Temp Pulse Resp BP Pulse Ox 36.6 C 58 L 18 147/103 H 100 10/18/24 07:00 10/18/24 07:00 10/18/24 07:00 10/18/24 07:00 10/18/24 07:00 Lab Results Blood Type / Crossmatch: No Data to Display Complete Blood Count: No Data to Display Complete Metabolic Panel: No Data to Display Liver Function Panel: No Data to Display Coagulation Panel: No Data to Display Cardiac Panel: No Data to Display Arterial Blood Gas: No Data to Display Venous Blood Gas: No Data to Display Pancreas Panel: No Data to Display Thyroid Panel: No Data to Display Infectious Disease: No Data to Display Blood Cultures: No Data to Display Toxicology Panel: No Data to Display Imaging and Studies Imaging and Studies Study information below may be from another EMR and interpreted by another provider. Please see original notes in EMR for more complete details. EKG Summary: 04/16/24: Exam: Resting ECG Reason for Exam: upper abdominal pain Patient Location: E HR:109 bpm ECG Measurements Heart Rate 109 AXIS UT 121 P 71 QRSd 84 QRS 46 QT 324 T55 QTc 436 Conclusion Sinus tachycardia, rate 109 No interval abnormalities No STEMI I have reviewed and I agree with the emergency room physician's ECG interpretation. Stress Test Summary: 04/30/18: *[facility]* *[facility]* [address] [place] [address] Stress Electrocardiography Chase protocol Date of study: 04/30/2018 *PATIENT PRESENTATION* Height: 182.9cm (72in) Blood Pressure: Weight: 85.5kg (188lb) BSA: 2.09m^2 Ordering physician: Lan Arenas Impressions: Normal study after maximal exercise. Summary: 1. Stress ECG conclusions: The stress ECG is negative. Allen treadmill score: 13. This score predicts a low risk of cardiac events. 2. Stress: The target heart rate was achieved. The heart rate response to stress is normal. There is a normal resting blood pressure with an appropriate response to stress. The patient experienced no chest pain during stress. Exercise capacity is normal for age. Indication: R06.09. History: REASON FOR TESTING: OVER THE PASET MONTH, PT HAS BEEN EXPERINCING BUTTERFLYS IN HIS CHEST- STATED THAT IT WAS A WEIRD TREMBLING FEELING. 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 PT REPORTS THAT HE HAS HAD UNEXPECTED SHORTNESS OF BREATH WITH NORMAL ACTIVITIES. PMH: HYPERLIPIDEMIA, ANXIETY. FAMILY HX: FATHER- AFIB, TIA, VASCULAR STENTING AND REVASC. SURGERY TO LOWER LEG. SMOKING: SMOKED 1PPD X 13 YEARS, QUIT 2007. EXCERCISE: IRREGULAR EXCERCISE, WALKING AND ROWING MACHINE PERIODICALLY. Risk factors: Family history of coronary artery disease. Dyslipidemia. Cholesterol: 207mg/dl. HDL: 40mg/dl. LDL: 84mg/dl. Triglycerides: 90mg/dl. ALLERGIES: NKDA MEDICATIONS:SIMVASTATIN 20 MG DAILY, ASPIRIN 81 MG OCASSIONALLY. Protocol: Chase protocol. Baseline ECG: NO PREVIOUS EKG AVAILABLE TODAY'S EKG- SINUS RHYTHM, ST ELEVATION-NORMAL EARLY REPOL PATTERN. Stress protocol: + +---+ +---+ !Stage !HR !BP (mmHg) !Sat! + +---+ +---+ !Baseline supine !62 !140/92 (108) !---! + +---+ +---+ !Baseline standing !61 !132/86 (101) !99%! + +---+ +---+ !Stage I; 1.7mph, 10degrees; 3 min !97 !161/101 (121)!98%! + +---+ +---+ !Stage II; 2.5mph, 12degrees; 3 min !111!180/106 (131)!97%! + +---+ +---+ !Stage III; 3.4mph, 14degrees; 3 min!129!196/102 (133)!98%! + +---+ +---+ !Stage IV; 4.2mph, 16degrees; 3 min !145!200/110 (140)!98%! + +---+ +---+ !Recovery; 1 min !140!192/98 (129) !96%! + +---+ +---+ !Recovery; 3 min !92 !208/90 (129) !---! + +---+ +---+ !Recovery; 6 min !83 !134/94 (107) !---! + +---+ +---+ * Stress results: The target heart rate was achieved. The heart rate response to stress is normal. There is a normal resting blood pressure with an appropriate response to stress. The rate-pressure product for the peak heart rate and blood pressure was 09270gw Hg/min. The patient experienced no chest pain during stress. Exercise capacity is normal for age. Stress ECG: EXCERCISE TESTING ENDED IN 13 MINS, 18 SECS DUE TO FATIGUE. MAX HR 176, 104% OF TARGET. HYPERTENSIVE BLOOD PRESSURE RESPONSE. METS: 14.37 ANGINA: NO REPORTED CHEST PAIN OR PRESSURE, NO CHEST FLUTTERING. ISCHEMIA: NO ISCHEMIC CHANGES NOTED.. FUNCTIONAL CAPACITY: ABOVE AVERAGE CAPACITY. The stress ECG is negative. Allen treadmill score: 13. This score predicts a low risk of cardiac events. Study data: Madi Pierce MD supervised and was readily available during the procedure. This study was interpreted by [facility]. Study status: Routine. Consent: The risks, benefits, and alternatives to the procedure were explained to the patient and informed consent was obtained. Procedure: Initial setup. A baseline ECG was recorded. Surface ECG leads and manual cuff blood pressure measurements were monitored. Heart sounds: Normal. Lung sounds: Normal. Treadmill exercise testing was performed using the Chase protocol. Study completion: The patient tolerated the procedure well and was discharged from the lab. Discharge: The patient left the laboratory in stable condition. Birthdate: Patient birthdate: 1965. Sex: Gender: male. Study date: Study date: 04/30/2018. Study time: 08:30 AM. Electronically signed by Madi Pierce MD 04/30/2018 09:46 Carotid Artery Summary:: 05/09/18: Exam(s) a US:US carotid SYMPTOM/DIAGNOSIS: HEADACHE ASSOCIATED WITH SEXUAL ACTIVITY, G44.82, SMOKER, DIZZINESS CAROTID ULTRASOUND: Mild intimal thickening is noted bilaterally. Also mild calcific plaque is identified in both carotid bulbs. There is a less than 50% stenosis bilaterally. Note is also made of bilateral antegrade flow in the vertebrals. SUMMARY: There is no evidence of significant carotid stenosis. Please see the carotid ultrasound worksheet for the complete results of this examination. Anesthesia Assessment and Plan Anesthesia History Personal History: No History of Anesthesia Complications Family History: No Family History of Anesthesia Complications Exercise Tolerance Exercise Tolerance: Metabolic Equivalents>4 Pertinent Negatives Pertinent Negatives: No Symptoms of GERD, No Major Cardiovascular Symptoms or Complaints and No Major Pulmonary Symptoms or Complaints Cardiac & Pulmonary Exam Cardiac Exam: Normal S1/S2 Heart Sounds Pulmonary Exam: Clear Bilateral Breath Sounds Implantable Cardiac Device Does patient have a Pacemaker or an ICD?: No Airway Exam Known Difficult Airway: No Mallampati Class: 2 Mouth Opening: Normal (> 3cm) Thyromental Distance: Greater than 3 cm Neck Range of Motion: Full ROM Neck Circumference: Normal Teeth Condition: Normal Dentition ASA Classification ASA Score: ASA 2 Emergency Case?: No NPO Status NPO Status: NPO Clears >2 hours, Solids >8 hours Anesthesia Plan Resuscitation Status: Full Code Anesthesia Technique: General Anesthesia Airway Planned: Natural Airway Monitors Used: Standard Monitors Preoperative Comments:: Hx ANA, unable to tolerate CPAP, HTN well controlled at home, no active GERD symptoms.
[2024-10-18 08:12] VITALS: BMI 24.8
--- NOTE | 2024-10-18 09:01 | BOWEL_PTH ---
PATIENT: Juan Francisco Graf LOC: [facility] U#:[id number] AGE/SX: 59/M ROOM: RE10/18/[address]: Toro Harris MD : 1965 BED: DIS: 10/18/2024 SPEC #: [id number] RECD: 10/18/24 12:54 STATUS: ANGIE REQ #: [id number] ELIJAH: 10/18/24 09:[address]: Toro Harris DEPT: Surgical Specimen RECD BY: Maria M Laureano ENTERED: 10/18/24 12:55 SP TYPE: Bowel OTHR DR: Abebe Bell Tissues: 1 - BIOPSY BOWEL 2 - BIOPSY BOWEL Procedures: GROSS AND MICRO LEVEL 4 Comments: [id number]
[2024-10-18 09:10] VITALS: BP 117/73; PULSE 48; RESP 16; TEMP 36; O2SAT 98
--- NOTE | 2024-10-18 09:31 | W.ANESPOSTOP ---
Postoperative Evaluation Date, Time and Location Date Performed: 10/18/24 Time Performed: Patient Location: Day Surgery Unit Vital Signs Most Recent Imported Vital Signs: Most Recent Vital Signs Temp Pulse Resp BP Pulse Ox 36.0 C L 48 L 16 117/73 98 10/18/24 09:10 10/18/24 09:10 10/18/24 09:10 10/18/24 09:10 10/18/24 09:10 Pain Score Most Recent Pain Score: Most Recent Pain Score Pain Level 0 10/18/24 09:10 Assessment Mental Status: Awake (Alert & Oriented to Patient Baseline) Airway and Respiratory Function: Patent airway with normal (patient baseline) respiratory exam Cardiovascular Function: Hemodynamically Stable Hydration Status: Adequately Hydrated Nausea & Vomiting: No Nausea or Vomiting Pain: Pt. Denies Any Pain Peripheral Nerve Block: Patient did not receive a nerve block
[2024-10-18 09:36] VITALS: BP 119/83; PULSE 51; RESP 16; TEMP 36; O2SAT 98
== END 2024-10-18 09:44 | disposition home or self-care (01) ==
LOC: SUR 06:46
PROVIDERS: PCP Physician Assistant; Visit Provider Surgery
PROC: 0DJD8ZZ Inspection of Lower Intestinal Tract, Via Natural or Artificial Opening Endoscopic (ICD-10-PCS; CPT 45378; principal; 2024-10-18 08:15)
DX: Z12.11 Encounter for screening for malignant neoplasm of colon (principal); K63.5 Polyp of colon
CPT/HCPCS: 45380; 88305; J2704